=== PATIENT | male | born 1975 | race African-American/Black ===

== ENCOUNTER 2016-10-25 03:48 | Emergency (ER) | payer MEDICARE, OTHER ==
[~2016-10-25] VITALS: Ht 180.3 cm; Wt 77.0 kg
[~2016-10-25 03:48] MED LIST: DIPH1TAB25 PO; HYDR-762 PO; LAMI150T23 PO; TENO150T PO
[2016-10-25 03:51] VITALS: Ht 180.3 cm; Wt 77.0 kg
[2016-10-25] MEDS ORDERED: HYDROmorphONE 1 MG/ML SYG IV STA (06:26)
[2016-10-25 07:18] LABS: BASOPHILS % 0.3 % (0.0-2.0); EOSINOPHILS % 0.2 % (0.0-7.0); HEMATOCRIT 32.1 % (42.0-52.0); HEMOGLOBIN 10.6 g/dl (14.0-18.0); LYMPHOCYTES # 0.3 10^3/ul (0.8-2.9); LYMPHOCYTES % 8.5 % (15.0-51.0); MEAN CORPUSCULAR HEMOGLOBIN 31.2 pg (29.0-33.0); MEAN CORPUSCULAR HGB CONC 33.2 g/dl (32.0-37.0); MEAN PLATELET VOLUME 7.5 fl (7.4-10.4); MONOCYTE # 0.3 10^3/ul (0.3-0.9); MONOCYTES % 7.2 % (0.0-11.0); NEUTROPHIL # 3.3 10^3/ul (1.6-7.5); NEUTROPHILS % 83.8 % (39.0-77.0); PLATELET COUNT 97 10^3/UL (140-440); RED BLOOD COUNT 3.41 10^6/ul (4.70-6.10); RED CELL DISTRIBUTION WIDTH 15.6 % (11.5-14.5)
[2016-10-25 07:27] LABS: ALBUMIN 4.2 g/dl (3.3-4.9)
[2016-10-25 07:28] LABS: POTASSIUM 4.8 mmol/L (3.5-5.1)
[2016-10-25 07:30] LABS: ALBUMIN/GLOBULIN RATIO 0.95; CREATININE 9.97 mg/dl (0.61-1.24); TOTAL PROTEIN 8.6 g/dl (6.1-8.1)
[2016-10-25 07:31] LABS: CALCIUM 6.7 mg/dl (8.4-10.2)
[2016-10-25 07:37] LABS: CONDITION 1; LH ANALYZER COMMENTS 1
[2016-10-25 07:51] VITALS: BP 115/79; PULSE 77; RESP 20
[2016-10-25] MEDS ORDERED: BEN50 PO (07:52)
--- NOTE | 2016-10-25 07:58 | ERD ---
ER Documentation Chief Complaint Date/Time DATE: 10/25/16 0606 Chief Complaint lower abd pain x 1 hour, h/o same previously multiple times HPI 41-year-old male presents the emergency department complaining of abdominal pain. Review of patient's records indicate he has had serial evaluations for abdominal pain of similar complaint. Patient returns today complaining of abdominal pain that he states started for approximately 1 hour. He reports no fevers, chills, vomiting. He reports no diarrhea. He reports the pain is somewhere between a 9 out of 10 where a 10 out of 10. The pain does not radiate and is poorly localized but is mostly in the lower part of his abdomen. This pain is similar to what he has had in the past. Patient states that he feels this way after dialysis not infrequently. ROS All systems reviewed and are negative except as per history of present illness. Medications Home Meds Active Scripts Diphenhydramine Hcl* (Benadryl*) 50 Mg Cap, 50 MG PO Q6H Y for ITCHING/RASH, # 30 CAP Prov:ELE JONES 10/25/16 Lamivudine* (Epivir*) 150 Mg Tablet, 150 MG PO BID for 30 Days, TAB Prov:PRECIOUS LEROY MD 03/20/16 Tenofovir Disoproxil Fumarate (Viread) 150 Mg Tablet, 150 MG PO DAILY for 30 Days, TAB Prov:PRECIOUS LEROY MD 03/20/16 Hydrocodone Bit-Acetaminophen* ([place]*) 10-325 Mg Tablet, 1 TAB PO Q6 Y for PAIN , #6 TAB Prov:PRECIOUS LEROY MD 03/20/16 Reported Medications Diphenoxylate Hcl-Atropine* (Lomotil*) 1 Tab Tab, 1 TAB PO Q6H Y for DIARRHEA, TAB 09/14/15 Lamivudine* (Epivir*) 150 Mg Tablet, PO BID, TAB 09/14/15 Tenofovir Disoproxil Fumarate (Viread) 150 Mg Tablet, PO DAILY, TAB 09/14/15 Allergies Allergies: Coded Allergies: egg (Verified Allergy, Unknown, 03/20/16) PMhx/Soc History of Surgery: Yes (BIOPSY ON BACK AND KIDNEYS) Anesthesia Reaction: No Hx Neurological Disorder: No Hx Respiratory Disorders: No Hx Cardiac Disorders: No Hx Psychiatric Problems: Yes (DEPRESSION) Hx Miscellaneous Medical Probl: Yes (HIV positive,ESRD HD TThS) Hx Alcohol Use: No Hx Substance Use: No Hx Tobacco Use: No Smoking Status: Unknown if ever smoked FmHx Noncontributory for chief complaint Physical Exam Vitals Vital Signs Date Time Temp Pulse Resp B/P Pulse Ox O2 Delivery O2 Flow Rate FiO2 10/25/16 07:51 77 20 115/79 99 10/25/16 03:51 97.8 77 20 122/59 99 Physical Exam GENERAL: The patient is well developed and appropriate for usual state of health in no apparent distress HEENT: Pupils equal, round, and reactive to light. EOMI. There is no scleral icterus. NECK: C-spine is soft and supple, there is no meningismus. There is no cervical lymphadenopathy. LUNGS: Clear to auscultation bilaterally. There are no rales, wheezes or rhonchi. HEART: Regular rate and rhythm, no murmurs, clicks, rubs or gallops. ABDOMEN: Soft, non-tender, non-distended. There are bowel sounds in all four quadrants. No rebound or guarding. EXTREMITIES: There is no peripheral cyanosis or edema. No focal swelling or erythema. NEURO: The patient moves all four extremities with 5/5 strength. Cranial nerves II - XII are intact. Normal gait. Alert and oriented SKIN: There is no apparent rash or petechiae. HEME/LYMPHATIC: There is no evidence of excessive bruising or lymphedema. PSYCHIATRIC: The patient does not appear anxious or depressed. Result Diagram: 10/25/16 0640 10/25/16 0640 Results 24 hrs Laboratory Tests Test 10/25/16 06:40 Alanine Aminotransferase (ALT/SGPT) 38IU/L Albumin 4.2g/dl Albumin/Globulin Ratio 0.95 Alkaline Phosphatase 237IU/L Anion Gap 24 Aspartate Amino Transf (AST/SGOT) 32IU/L Basophils # 0.010^3/ul Basophils % 0.3% Blood Morphology Comment Blood Urea Nitrogen 41mg/dl Calcium Level 6.7mg/dl Carbon Dioxide Level 26mmol/L Chloride Level 97mmol/L Creatinine 9.97mg/dl Direct Bilirubin 0.00mg/dl Eosinophils # 0.010^3/ul Eosinophils % 0.2% Globulin 4.40g/dl Glucose Level 119mg/dl Hematocrit 32.1% Hemoglobin 10.6g/dl Indirect Bilirubin 0.0mg/dl Lipase 328U/L Lymphocytes # 0.310^3/ul Lymphocytes % 8.5% Mean Corpuscular Hemoglobin 31.2pg Mean Corpuscular Hemoglobin Concent 33.2g/dl Mean Corpuscular Volume 94.0fl Mean Platelet Volume 7.5fl Monocytes # 0.310^3/ul Monocytes % 7.2% Neutrophils # 3.310^3/ul Neutrophils % 83.8% Nucleated Red Blood Cells # 0.010^3/ul Nucleated Red Blood Cells % 0.0/100WBC Platelet Count 9710^3/UL Potassium Level 4.8mmol/L Red Blood Count 3.4110^6/ul Red Cell Distribution Width 15.6% Sodium Level 142mmol/L Total Bilirubin 0.0mg/dl Total Protein 8.6g/dl White Blood Count 4.010^3/ul Current Medications Medications (Trade) Dose Ordered Sig/Nima Route PRN Reason Start Time Stop Time Status Last Admin Dose Admin Hydromorphone HCl (Dilaudid) 1 mg ONCE STAT IV 10/25/16 06:26 10/25/16 06:28 DC 10/25/16 06:49 Procedures/MDM Patient was taken to a room, seen and evaluated. Comfort measures were initiated. Diagnostic tests were ordered and reviewed. 3 LEAD RHYTHM STRIP: Normal sinus rhythm without ectopy EK lead EKG interpreted by myself: Rate/rhythm: Normal sinus rhythm Ald[place]/intervals: Normal Ischemia: Nonspecific ST and T-wave changes with no ST elevation Impression: Nonspecific EKG REEVALUATION: Serial examinations of the abdomen remained benign [employer]ISION MAKIN-year-old male presents to the emergency department for chronic, intermittent abdominal pain of uncertain etiology. Differential diagnosis entertained was broad and potential high acuity, but ultimately the patient's lab tests and serial examination indicate the patient appears to be low risk. At this time, patient appears to be comfortable after supportive care in the emergency department. He appears to be appropriate for outpatient care. Departure Diagnosis: Primary Impression: Abdominal pain Condition: Stable Patient Instructions: Abdominal Pain Referrals: PING DURAN MD (PCP) Additional Instructions: Please see Dr. Duran tomorrow. Take a copy of your results with you. Return for any increased pain or concerns. ELE JONES Oct 25, 2016 07:57
== END 2016-10-25 08:06 | disposition home or self-care (01) ==
LOC: E/R 03:48
DX: R10.30 Lower abdominal pain, unspecified (principal); N18.6 End stage renal disease; Z99.2 Dependence on renal dialysis
CPT/HCPCS: 80053; 83690; 85025; J1170; 36415; 93005; 96374

== ENCOUNTER 2016-12-09 12:35 | Emergency (ER) | payer MEDICARE, OTHER ==
[~2016-12-09] VITALS: Ht 180.3 cm; Wt 76.8 kg
[~2016-12-09 12:35] MED LIST changes: +BEN50 PO
[2016-12-09] MEDS ORDERED: morphine 4 MG/ML VIAL IV STA ×2 (12:44→14:13)
[2016-12-09] MEDS ORDERED: FAMOTIDINE 20 MG INJ IV STA (12:44)
[2016-12-09] MEDS ORDERED: ONDANSETRON 4 MG INJ IV STA (12:44)
--- NOTE | 2016-12-09 13:06 | RADRPT ---
PROCEDURE: XR Chest. CLINICAL INDICATION: Shortness of breath. Chest pain. Abdominal pain. TECHNIQUE: Single frontal chest x-ray. COMPARISON: Chest x-ray dated 03/20/2016 FINDINGS: Large fibrothorax of the left chest is stable. Benign chronic changes are seen throughout the lungs , equally stable. No acute infiltrate or evidence for acute pneumonia is seen. Small left pleural effusion is present, likely chronic. The heart size is enlarged. Aortic atherosclerotic vascular ca lcifications are identified. There is no pneumothorax. The osseous structures are remarkable for si gnificant dextroscoliotic curvature of the upper thoracic spine, stable over time. IMPRESSION: 1. Large fibrothorax of the left hemithorax, chronic and stable. 2. Small left basilar pleural effusion, also stable and chronic. 3. Cardiomegaly with aortic atherosclerotic vascular calcifications. 4. No definite acute cardiopulmonary process. 5. Stable significant dextroscoliosis of the thoracic spine. RPTAT: PP .Stu Oviedo MD, MD Date Time Electronically viewed and signed by .Stu Oviedo MD, on 12/09/2016 13:05 .B/
[2016-12-09 13:10] VITALS: Ht 180.3 cm; Wt 76.8 kg
[2016-12-09] MEDS ORDERED: [UNRECOGNIZED DRUG - CODE] PO (13:22)
[2016-12-09] MEDS ORDERED: TENO300T2 PO (13:23)
[2016-12-09] MEDS ORDERED: SEVE800T7 PO (13:24)
[2016-12-09] MEDS ORDERED: EFV600C PO (13:25)
[2016-12-09 13:30] LABS: HEMATOCRIT 33.2 % (42.0-52.0); MEAN CORPUSCULAR HEMOGLOBIN 31.2 pg (29.0-33.0); MEAN CORPUSCULAR VOLUME 94.4 fl (82.0-101.0); MEAN PLATELET VOLUME 7.3 fl (7.4-10.4); PLATELET COUNT 83 10^3/UL (140-440); RED BLOOD COUNT 3.52 10^6/ul (4.70-6.10); UNCORRECTED WBC 2.3 10^3/ul (4.8-10.8)
[2016-12-09] MEDS ORDERED: DIPHENHYDRAMINE 25 MG CAP PO ONE (13:30)
[2016-12-09 13:39] LABS: CONDITION 1; LH ANALYZER COMMENTS 1
[2016-12-09 13:40] LABS: ALBUMIN 3.8 g/dl (3.3-4.9)
[2016-12-09 13:41] LABS: POTASSIUM 5.4 mmol/L (3.5-5.1)
[2016-12-09 13:43] LABS: ALBUMIN/GLOBULIN RATIO 0.9
[2016-12-09 13:46] LABS: CALCIUM 5.7 mg/dl (8.4-10.2)
[2016-12-09] MEDS ORDERED: CA GLUCONATE (GM) 10% 10ML INJ IV STA (14:06)
--- NOTE | 2016-12-09 14:12 | ERD ---
ER Documentation Chief Complaint Date/Time DATE: 12/09/16 TIME: 14:10 Chief Complaint HPI This is a 41-year-old male who presents to the emergency room from home for evaluation of generalized weakness, low blood sugar, and a mild shortness of breath. According to EMS this patient was found to have a blood sugar 46. The patient does state that he has not been eating for the past 2 days because he is been feeling sick and has mild abdominal pain. He states that abdominal pain is in the midportion of his abdomen and is only improved with Dilaudid. This patient is not a diabetic and is not on hypoglycemic medications. ROS All systems reviewed and are negative except as per history of present illness. Medications Home Meds Active Scripts Diphenhydramine Hcl* (Benadryl*) 50 Mg Cap, 50 MG PO Q6H Y for ITCHING/RASH, # 30 CAP Prov:ELE JONES 10/25/16 Reported Medications Efavirenz* (Sustiva*) 600 Mg Tab, 600 MG PO DAILY, TAB 12/09/16 Sevelamer Carbonate* (Renvela*) 800 Mg Tablet, 4 GM PO WITH MEALS, TAB 12/09/16 Tenofovir Disoproxil Fumarate (Viread) 300 Mg Tablet, 300 MG PO DAILY, TAB 12/09/16 Lamivudine* (Epivir*) 300 Mg Tablet, 300 MG PO DAILY, TAB 12/09/16 Diphenoxylate Hcl-Atropine* (Lomotil*) 1 Tab Tab, 1 TAB PO Q6H Y for DIARRHEA, TAB 09/14/15 Discontinued Reported Medications Lamivudine* (Epivir*) 150 Mg Tablet, PO BID, TAB 09/14/15 Tenofovir Disoproxil Fumarate (Viread) 150 Mg Tablet, PO DAILY, TAB 09/14/15 Discontinued Scripts Lamivudine* (Epivir*) 150 Mg Tablet, 150 MG PO BID for 30 Days, TAB Prov:PRECIOUS LEROY MD 03/20/16 Tenofovir Disoproxil Fumarate (Viread) 150 Mg Tablet, 150 MG PO DAILY for 30 Days, TAB Prov:PRECIOUS LEROY MD 03/20/16 Hydrocodone Bit-Acetaminophen* (Rena Lara*) 10-325 Mg Tablet, 1 TAB PO Q6 Y for PAIN , #6 TAB Prov:PRECIOUS LEROY MD 03/20/16 Allergies Allergies: Coded Allergies: egg (Verified Allergy, Unknown, 12/09/16) PMhx/Soc History of Surgery: Yes (BIOPSY ON BACK AND KIDNEYS) Anesthesia Reaction: No Hx Neurological Disorder: No Hx Respiratory Disorders: No Hx Cardiac Disorders: No Hx Psychiatric Problems: Yes (DEPRESSION) Hx Miscellaneous Medical Probl: Yes (HIV positive,ESRD HD TThS) Hx Alcohol Use: No Hx Substance Use: No Hx Tobacco Use: No Smoking Status: Former smoker Physical Exam Vitals Vital Signs Date Time Temp Pulse Resp B/P Pulse Ox O2 Delivery O2 Flow Rate FiO2 12/09/16 13:10 97.7 61 24 140/86 98 12/09/16 13:10 Nasal Cannula 2.0 12/09/16 13:10 97.7 61 24 140/86 98 Nasal Cannula 2.0 Physical Exam INITIAL VITAL SIGNS: Reviewed by me GENERAL: The patient is well developed and appropriate for usual state of health in no apparent distress HEENT: Pupils equal, round, and reactive to light. EOMI. There is no scleral icterus. NECK: C-spine is soft and supple, there is no meningismus. There is no cervical lymphadenopathy. LUNGS: Coarse breath sounds bilaterally, no wheezes HEART: Regular rate and rhythm, no murmurs, clicks, rubs or gallops. ABDOMEN: Soft, non-tender, non-distended. There are bowel sounds in all four quadrants. No rebound or guarding. EXTREMITIES: AV fistula in the right upper extremity, palpable thrill, there is no peripheral cyanosis or edema. No focal swelling or erythema. NEUROLOGICAL: The patient moves all four extremities with 5/5 strength. Cranial nerves II - XII are intact. Normal gait. Alert and oriented SKIN: There is no apparent rash or petechiae. HEME/LYMPHATIC: There is no evidence of excessive bruising or lymphedema. PSYCHIATRIC: The patient does not appear anxious or depressed. Result Diagram: 12/09/16 1310 12/09/16 1310 Results 24 hrs Laboratory Tests Test 12/09/16 13:02 12/09/16 13:10 Bedside Glucose 86mg/dL Alanine Aminotransferase (ALT/SGPT) 17IU/L Albumin 3.8g/dl Albumin/Globulin Ratio 0.90 Alkaline Phosphatase 209IU/L Anion Gap 26 Aspartate Amino Transf (AST/SGOT) 29IU/L Basophils # Pending Basophils % Pending Blood Morphology Comment Blood Urea Nitrogen 52mg/dl Calcium Level 5.7mg/dl Carbon Dioxide Level 25mmol/L Chloride Level 92mmol/L Creatinine Pending Direct Bilirubin 0.00mg/dl Eosinophils # Pending Eosinophils % Pending Globulin 4.20g/dl Glucose Level 85mg/dl Hematocrit 33.2% Hemoglobin 11.0g/dl Indirect Bilirubin 0.0mg/dl Lipase 210U/L Lymphocytes # Pending Lymphocytes % Pending Mean Corpuscular Hemoglobin 31.2pg Mean Corpuscular Hemoglobin Concent 33.0g/dl Mean Corpuscular Volume 94.4fl Mean Platelet Volume 7.3fl Monocytes # Pending Monocytes % Pending Neutrophils # Pending Neutrophils % Pending Nucleated Red Blood Cells # Pending Nucleated Red Blood Cells % Pending Platelet Count 8310^3/UL Potassium Level 5.4mmol/L Red Blood Count 3.5210^6/ul Red Cell Distribution Width 15.0% Sodium Level 138mmol/L Total Bilirubin 0.0mg/dl Total Protein 8.0g/dl White Blood Count 2.310^3/ul Current Medications Medications (Trade) Dose Ordered Sig/Nima Route PRN Reason Start Time Stop Time Status Last Admin Dose Admin Morphine Sulfate (morphine) 4 mg ONCE STAT IV 12/09/16 12:44 12/09/16 12:45 DC 12/09/16 13:06 Ondansetron HCl (Zofran Inj) 4 mg ONCE STAT IV 12/09/16 12:44 12/09/16 12:45 DC 12/09/16 13:06 Famotidine (Pepcid Iv) 20 mg ONCE STAT IV 12/09/16 12:44 12/09/16 12:45 DC 12/09/16 13:06 Diphenhydramine HCl (Benadryl) 25 mg ONCE ONCE PO 12/09/16 13:30 12/09/16 13:31 DC 12/09/16 13:27 Calcium Gluconate (Ca Gluc) 1 gm ONCE STAT IV 12/09/16 14:06 12/09/16 14:07 DC Procedures/MDM Chest X-ray 1V Interpreted by me: Soft Tissue: Fibrothorax with no effusion Bones: No acute abnormalities Mediastinum/Cardiac Silhouette/Lungs: [No acute abnormalities] This 41-year-old male presents to the emergency room for evaluation of abdominal pain, generalized weakness and low blood sugar. This patient had blood sugar checked after receiving dextrose and was 86. He is alert oriented to person place and time. The patient did have lab work drawn which shows hypocalcemia. He was given an amp of calcium gluconate here in the emergency room. He is scheduled for dialysis today. The patient was given morphine for pain control will be discharged home with a prescription for Rena Lara, and Colace for abdominal pain. He has no signs of pancreatitis at this time. Negative Burt sign, no rebound or tenderness Departure Diagnosis: Primary Impression: Pancytopenia Additional Impressions: Abdominal pain Chronic kidney disease Condition: Stable ANIKA CHARLES DO Dec 09, 2016 14:12
[2016-12-09] MEDS ORDERED: HYDR-906 PO (14:13)
[2016-12-09] MEDS ORDERED: DOCU-144 PO (14:13)
[2016-12-09 14:32] VITALS: BP 131/79; PULSE 61; RESP 20; TEMP 98
[2016-12-09 14:34] LABS: LYMPHOCYTES # 0.3 10^3/ul (0.8-2.9); MONOCYTE # 0.3 10^3/ul (0.3-0.9); NEUTROPHIL # 1.6 10^3/ul (1.6-7.5)
[2016-12-09 14:46] LABS: CREATININE 14.08 mg/dl (0.61-1.24)
[2016-12-11 16:47] LABS: WHITE BLOOD COUNT 2.3 10^3/ul (4.8-10.8)
== END 2016-12-09 15:13 | disposition home or self-care (01) ==
LOC: E/R 12:35
DX: D61.818 Other pancytopenia (principal); R10.9 Unspecified abdominal pain; N18.9 Chronic kidney disease, unspecified; Z87.891 Personal history of nicotine dependence
CPT/HCPCS: 36415; 71010; 80053; 82962; 83690; 85025; 96374; 96375; 96376; 99284; J0610; J2270; J2405

== ENCOUNTER 2017-07-18 11:43 | Inpatient (IN) | payer MEDICARE, OTHER ==
[~2017-07-18] VITALS: Ht 177.8 cm; Wt 69.5 kg
[2017-07-18] VITALS: BP 151/79; RESP 18
[~2017-07-18 11:43] MED LIST changes: +DOCU-144 PO; +EFV600C PO; -HYDR-762 PO; +HYDR-906 PO; -LAMI150T23 PO; +SEVE800T7 PO; -TENO150T PO; +TENO300T2 PO; +[UNRECOGNIZED DRUG - CODE] PO
[2017-07-18 12:16] VITALS: Ht 177.8 cm; Wt 69.5 kg
[2017-07-18 16:15] VITALS: TEMP 98.2
--- NOTE | 2017-07-18 16:23 | RADRPT ---
PROCEDURE: XR Chest. CLINICAL INDICATION: chest pain TECHNIQUE: Single frontal view of the chest was obtained COMPARISON: 12/09/16 FINDINGS: The heart and mediastinum are within normal limits. There are chronic interstitial changes in the left lung with chronic calcification. There is no focal infiltrate. There is no pleural effusion or pneumothorax. RPTAT: AA IMPRESSION: Chronic left fibrothorax. No focal infiltrate. .Abundio Herndon MD, MD Date Time Electronically viewed and signed by .Abundio Herndon MD, MD on 07/18/2017 16:23 .S/
[2017-07-18 16:37] LABS: BASOPHILS % 0.3 % (0.0-2.0); EOSINOPHILS % 0.7 % (0.0-7.0); HEMATOCRIT 32.3 % (42.0-52.0); HEMOGLOBIN 10.2 g/dl (14.0-18.0); LYMPHOCYTES # 0.6 10^3/ul (0.8-2.9); LYMPHOCYTES % 20.4 % (15.0-51.0); MEAN CORPUSCULAR HEMOGLOBIN 31.1 pg (29.0-33.0); MEAN CORPUSCULAR HGB CONC 31.6 g/dl (32.0-37.0); MEAN CORPUSCULAR VOLUME 98.5 fl (82.0-101.0); MEAN PLATELET VOLUME 10.4 fl (7.4-10.4); MONOCYTE # 0.2 10^3/ul (0.3-0.9); MONOCYTES % 6.9 % (0.0-11.0); NEUTROPHIL # 2.2 10^3/ul (1.6-7.5); NEUTROPHILS % 71.4 % (39.0-77.0); PLATELET COUNT 104 10^3/UL (140-415); RED BLOOD COUNT 3.28 10^6/ul (4.70-6.10); RED CELL DISTRIBUTION WIDTH 14.6 % (11.5-14.5)
[2017-07-18 16:51] LABS: POSITIVE DIFF NO
[2017-07-18 16:59] LABS: ANION GAP 17 (8-16); BLOOD UREA NITROGEN 81 mg/dl (7-20); CALCIUM 7.2 mg/dl (8.4-10.2); CARBON DIOXIDE 24 mmol/L (21-31); CHLORIDE 100 mmol/L (97-110); GLUCOSE 81 mg/dl (70-220); POTASSIUM 5.1 mmol/L (3.5-5.1); SODIUM 136 mmol/L (135-144)
[2017-07-18 17:06] LABS: CREATININE 15.33 mg/dl (0.61-1.24)
[2017-07-18 17:11] LABS: TROPONIN-I < 0.012 ng/ml (0.00-0.12)
[2017-07-18] MEDS ORDERED: LORA1TAB PO (17:13)
[2017-07-18] MEDS ORDERED: ACETAMINOPHEN 325 MG TAB PO PRN ×2 (17:30→19:00)
[2017-07-18] MEDS ORDERED: ONDANSETRON 4 MG INJ IV PRN ×2 (17:30→19:00)
--- NOTE | 2017-07-18 18:32 | ERA ---
ER Documentation Chief Complaint Date/Time DATE: 07/18/17 TIME: 18:30 Chief Complaint generalized bodyache, missed dialysis today, last dialysis sat. HPI Patient is a 42-year-old male with HIV and dialysis who presents with pain. He has whole body pain. He said he missed dialysis yesterday and today. His last dialysis was on Sunday. He has right-sided arm pain which started prior to dialysis which is why he did not go. He has had no treatment as of yet. Upon review of old medical records the patient has multiple visits to the ER with admissions. His primary doctor is Dr. Sharp. ROS All systems reviewed and are negative except as per history of present illness. Medications Home Meds Active Scripts Diphenhydramine Hcl* (Benadryl*) 50 Mg Cap, 50 MG PO Q6H Y for ITCHING/RASH, # 30 CAP Prov:ELE JONES 10/25/16 Reported Medications Lorazepam* (Lorazepam*) 1 Mg Tablet, 1 MG PO HS Y for ANXIETY, #30 TAB 07/18/17 Efavirenz* (Sustiva*) 600 Mg Tab, 600 MG PO DAILY, TAB 12/09/16 Sevelamer Carbonate* (Renvela*) 800 Mg Tablet, 4 GM PO WITH MEALS, TAB 12/09/16 Lamivudine* (Epivir*) 300 Mg Tablet, 300 MG PO DAILY, TAB 12/09/16 Discontinued Reported Medications Tenofovir Disoproxil Fumarate (Viread) 300 Mg Tablet, 300 MG PO DAILY, TAB 12/09/16 Diphenoxylate Hcl-Atropine* (Lomotil*) 1 Tab Tab, 1 TAB PO Q6H Y for DIARRHEA, TAB 09/14/15 Discontinued Scripts Docusate Sodium* (Colace*) 100 Mg Capsule, 100 MG PO TID, #30 CAP Prov:ANIKA CHARLES DO 12/09/16 Hydrocodone/Acetaminophen ([place] 5-325 Tablet) 1 Each Tablet, 1 TAB PO Q6H Y for PAIN, #15 TAB Prov:ANIKA CHARLES DO 12/09/16 Allergies Allergies: Coded Allergies: No Known Allergy (Unverified , 07/18/17) PMhx/Soc History of Surgery: Yes (BIOPSY ON BACK AND KIDNEYS, fistulas to right arm) Anesthesia Reaction: No Hx Neurological Disorder: No Hx Respiratory Disorders: No Hx Cardiac Disorders: No Hx Psychiatric Problems: Yes (DEPRESSION) Hx Miscellaneous Medical Probl: Yes (HIV positive,ESRD HD (TThS)) Hx Alcohol Use: No Hx Substance Use: No Hx Tobacco Use: Yes (cig occassionally) Smoking Status: Light tobacco smoker FmHx Family History: diabetes Physical Exam Vitals Vital Signs Date Time Temp Pulse Resp B/P Pulse Ox O2 Delivery O2 Flow Rate FiO2 07/18/17 16:15 98.2 59 18 147/75 100 Room Air 07/18/17 12:16 98.2 75 18 152/74 100 Physical Exam Const: No acute distress Head: Atraumatic Eyes: Normal Conjunctiva ENT: Normal External Ears, Nose and Mouth. Neck: Full range of motion..~ No meningismus. Resp: Clear to auscultation bilaterally Cardio: Regular rate and rhythm, no murmurs Abd: Soft, non tender, non distended. Normal bowel sounds Skin: No petechiae or rashes Back: No midline or flank tenderness Ext: No cyanosis, or edema Neur: Awake and alert Psych: Normal Mood and Affect Result Diagram: 07/18/17 1610 07/18/17 1610 Results 24 hrs Laboratory Tests Test 07/18/17 16:10 White Blood Count 3.010^3/ul Red Blood Count 3.2810^6/ul Hemoglobin 10.2g/dl Hematocrit 32.3% Mean Corpuscular Volume 98.5fl Mean Corpuscular Hemoglobin 31.1pg Mean Corpuscular Hemoglobin Concent 31.6g/dl Red Cell Distribution Width 14.6% Platelet Count 69196^3/UL Mean Platelet Volume 10.4fl Neutrophils % 71.4% Lymphocytes % 20.4% Monocytes % 6.9% Eosinophils % 0.7% Basophils % 0.3% Nucleated Red Blood Cells % 0.0/100WBC Neutrophils # 2.210^3/ul Lymphocytes # 0.610^3/ul Monocytes # 0.210^3/ul Eosinophils # 0.010^3/ul Basophils # 0.010^3/ul Nucleated Red Blood Cells # 0.010^3/ul Sodium Level 136mmol/L Potassium Level 5.1mmol/L Chloride Level 100mmol/L Carbon Dioxide Level 24mmol/L Anion Gap 17 Blood Urea Nitrogen 81mg/dl Creatinine 15.33mg/dl Glucose Level 81mg/dl Calcium Level 7.2mg/dl Troponin I < 0.012ng/ml Current Medications Medications (Trade) Dose Ordered Sig/Nima Route PRN Reason Start Time Stop Time Status Last Admin Dose Admin Ondansetron HCl (Zofran Inj) 4 mg ER BRIDGE PRN IV NAUSEA AND/OR VOMITING 07/18/17 17:30 07/19/17 17:29 Acetaminophen (Tylenol Tab) 650 mg ER BRIDGE PRN PO MILD PAIN/FEVER 07/18/17 17:30 07/19/17 17:29 Procedures/MDM EKG read by me: Rate/Rhythm: Sinus bradycardia Intervals: Normal Impression: Bradycardia without ischemia Chest x-ray shows no pneumonia or pneumothorax per radiology. Smoking Cessation Therapy: Pt. was lectured for greater than 3 minutes on the health risks of continued smoking and the benefits of cessation. Patient is a 42-year-old male with HIV and dialysis who presents with shortness of breath and whole body pain. The patient has missed his dialysis and has an elevated BUN and creatinine. He has chronic renal failure. His potassium is slightly elevated at 5.1. His EKG shows no signs of hyperkalemia at this time. The patient will be admitted to Dr. Sharp to a medical surgical bed. He will need dialysis while he is admitted. He was given Toradol for pain. He can return for any worsening symptoms. At this point I doubt acute coronary syndrome, pneumonia, pneumothorax, pulmonary embolism, or aortic dissection. Departure Diagnosis: Primary Impression: SOB (shortness of breath) Additional Impressions: Pain Anemia Qualified Code: D64.9 - Anemia, unspecified type Hyperkalemia Condition: PRECIOUS Aguirre MD Jul 18, 2017 18:32
[2017-07-18] MEDS ORDERED: DOCUSATE SODIUM 100 MG CAP PO PRN (19:00)
[2017-07-18] MEDS ORDERED: DIPHENHYDRAMINE 50 MG CAP PO PRN (19:00)
[2017-07-18] MEDS ORDERED: LORAZEPAM 1 MG TAB PO PRN (19:00)
[2017-07-18] MEDS ORDERED: ZOLPIDEM 5 MG TAB PO PRN (19:00)
[2017-07-18] MEDS ORDERED: NACL 0.9% 3 ML SYG IV SCH (19:00)
[2017-07-18] MEDS ORDERED: BISACODYL (EC) 5 MG TAB PO PRN (19:00)
[2017-07-18] MEDS: HYDROmorphONE 1 MG/ML SYG IV PRN (19:18)
[2017-07-18] MEDS ORDERED: LORAZEPAM 2 MG INJ IV ONE (21:00)
[2017-07-18 22:34] LABS: CREATINE KINASE 96 IU/L (23-200)
[2017-07-18 22:48] LABS: CK-MB 0.54 ng/ml (0.0-2.4); TROPONIN-I < 0.012 ng/ml (0.00-0.12)
--- NOTE | 2017-07-18 22:52 | QN ---
Documentation Comment [id number] PING DURAN MD Jul 18, 2017 22:52
[2017-07-19] VITALS (11 sets, daily range): BP systolic 120–152; BP diastolic 56–85; PULSE 51–67; RESP 18–20
[2017-07-19] MEDS: HYDROmorphONE 1 MG/ML SYG IV PRN ×5 (00:14→20:49)
[2017-07-19] MEDS: DIPHENHYDRAMINE 50 MG INJ IV PRN ×3 (04:18→20:49)
[2017-07-19] MEDS: PANTOPRAZOLE (EC) 40 MG TAB PO SCH (05:19)
[2017-07-19 05:52] LABS: TROPONIN-I 0.014 ng/ml (0.00-0.12)
[2017-07-19 06:05] LABS: CK-MB 0.7 ng/ml (0.0-2.4)
[2017-07-19] MEDS ORDERED: ENOXAPARIN 30 MG/0.3 ML SYG SC SCH (09:00)
[2017-07-19] MEDS ORDERED: LAMIVUDINE 300 MG PO SCH (09:00)
[2017-07-19] MEDS: EFAVIRENZ 600 MG TAB PO SCH (09:49)
[2017-07-19] MEDS: SEVELAMER CARBONATE 0.8 GM PKT PO SCH ×3 (09:50→17:28)
[2017-07-19] MEDS ORDERED: DIPHENHYDRAMINE 25 MG CAP PO ONE (11:00)
--- NOTE | 2017-07-19 11:12 | PN ---
Date/Time of Note Date/Time of Note DATE: 07/19/17 TIME: 11:11 Assessment/Plan VTE Prophylaxis VTE Prophylaxis Intervention: heparin Lines/Catheters IV Catheter Type (from Nrsg): Saline Lock Assessment/Plan Chief Complaint/Hosp Course 42 y/o with # SOB likely secondary to missing HD session # Left hand deformity with painful finer? Tendinitis # HTN # HIV # Fibrothorax Recs - HD today - Dr Leon to see - Pain management - GI/DVT prophylaxsis Problems: Subjective 24 Hr Interval Summary Free Text/Dictation Pain in left index, 2nd and 3rd finger Due for HD today Exam/Review of Systems Vital Signs Vitals Vital Signs Date Time Temp Pulse Resp B/P Pulse Ox O2 Delivery O2 Flow Rate FiO2 07/19/17 08:30 51 17 07/19/17 07:28 97.5 146/81 100 07/19/17 00:05 2.0 07/18/17 23:00 Room Air Intake and Output 07/18/17 07/18/17 07/19/17 15:00 23:00 07:00 Intake Total 200 ml Balance 200 ml Exam hEENT: Head is atraumatic, normocephalic. Pupils equal and reactive. NECK: Supple. No JVD. Patient has an engorged muscles in the whole upper chest and abdominal area with collaterals. LUNGS: decreasedn breath sounds bases CVS: S1, S2 normal. ABDOMEN: Soft. Bowel sounds positive. EXTREMITIES: No cyanosis, clubbing. No edema. 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 Results Result Diagram: 07/18/17 1610 07/18/17 1610 Results 24 hrs Laboratory Tests Test 07/18/17 16:10 07/18/17 22:08 07/19/17 04:44 White Blood Count 3.0 #L Red Blood Count 3.28 L Hemoglobin 10.2 L Hematocrit 32.3 L Mean Corpuscular Volume 98.5 Mean Corpuscular Hemoglobin 31.1 Mean Corpuscular Hemoglobin Concent 31.6 L Red Cell Distribution Width 14.6 H Platelet Count 104 L Mean Platelet Volume 10.4 # Neutrophils % 71.4 Lymphocytes % 20.4 Monocytes % 6.9 Eosinophils % 0.7 Basophils % 0.3 Nucleated Red Blood Cells % 0.0 Neutrophils # 2.2 Lymphocytes # 0.6 L Monocytes # 0.2 L Eosinophils # 0.0 Basophils # 0.0 Nucleated Red Blood Cells # 0.0 Sodium Level 136 Potassium Level 5.1 Chloride Level 100 Carbon Dioxide Level 24 Anion Gap 17 H Blood Urea Nitrogen 81 H Creatinine 15.33 H Glucose Level 81 Calcium Level 7.2 L Troponin I < 0.012 < 0.012 0.014 Creatine Kinase 96 93 Creatine Kinase Index 0.6 0.8 Creatinine Kinase MB (Mass) 0.54 0.70 Medications Medications Current Medications Efavirenz (Sustiva) 600 mg DAILY PO Last administered on 07/19/17 09:49; Admin Dose 600 MG; Start 07/19/17 at 09:00 Lamivudine (Epivir) 300 mg DAILY PO ; Start 07/19/17 at 09:00; Status Future Hold Lorazepam (Ativan) 1 mg HS PRN PO ANXIETY Last administered on 07/19/17 02:28 ; Admin Dose 1 MG; Start 07/18/17 at 19:00 Ondansetron HCl (Zofran Inj) 4 mg Q6H PRN IV NAUSEA AND/OR VOMITING; Start at 19:00 Acetaminophen (Tylenol Tab) 650 mg Q6H PRN PO PAIN LEVEL 1-3 OR FEVER; Start at 19:00 Hydromorphone HCl (Dilaudid) 0.5 mg Q4H PRN IV SEVERE PAIN LEVEL 7-10 Last administered on 07/19/17 09:52; Admin Dose 0.5 MG; Start 07/18/17 at 19:00 Docusate Sodium (Colace) 100 mg Q12H PRN PO CONSTIPATION; Start 07/18/17 at 19: 00 Bisacodyl (Dulcolax) 5 mg DAILY PRN PO CONSTIPATION; Start 07/18/17 at 19:00 Zolpidem Tartrate (Ambien) 5 mg QHS PRN PO SLEEP; Start 07/18/17 at 19:00 Pantoprazole (Protonix Tab) 40 mg DAILY@06 PO Last administered on 07/19/17 05 :19; Admin Dose 40 MG; Start 07/19/17 at 06:00 Enoxaparin Sodium (Lovenox) 30 mg DAILY SC ; Start 07/19/17 at 09:00 Diphenhydramine HCl (Benadryl) 25 mg TID PRN IV ITCHING Last administered on t 04:18; Admin Dose 25 MG; Start 07/19/17 at 01:30 JODI HICKMAN MD Jul 19, 2017 11:12
--- NOTE | 2017-07-19 13:54 | HP ---
DATE OF ADMISSION: 07/18/2017 HISTORY OF PRESENT ILLNESS: This patient, Edy Spear, is a 42-year-old male who has a history of ESRD, history of HIV, hypertension, history of hyperparathyroidism secondary, noncompliance with his medications, history of hypokalemia. Patient's other history includes history of pneumonia, history of dyslipidemia, history of sepsis. FAMILY HISTORY: Denies. SOCIAL HISTORY: Denies. MEDICATIONS: 1. hiv. 2. Sustiva. 3. aranesp_. 4. NovoLog. 5. Renvela. 6. Protonix. 7. Benadryl. 8. Ativan. 9. Zofran. 10. Tylenol. 11. Dilaudid. 12. Colace. 13. Bisacodyl. 14. Ambien REVIEW OF SYSTEMS: HEENT: Unremarkable. RESPIRATORY: Mild shortness of breath. CVS: reg. GASTROINTESTINAL: neg. EXTREMITIES: Swelling and collaterals in the upper chest and upper extremities noted. PHYSICAL EXAMINATION: GENERAL: Patient is awake, alert. VITAL SIGNS: Pulse 59, blood pressure 142/71. HEENT: Head is atraumatic, normocephalic. Pupils equal and reactive. NECK: Supple. No JVD. Patient has an engorged muscles in the whole upper chest and abdominal area with collaterals. LUNGS: Clear. CVS: S1, S2 normal. ABDOMEN: Soft. Bowel sounds positive. EXTREMITIES: No cyanosis, clubbing. No edema. 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 DATA: Potassium 5.1, sodium 136. Patient had a chest x-ray done, shows chronic left fibrothorax. IMPRESSION: 1. Hypertension. 2. End-stage renal disease. 3. Human immunodeficiency virus. 4. Hemodialysis. 5. Hypokalemia. 6. Fibrothorax. 7. 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 PLAN: Continue home medication, hemodialysis, pain meds. Dictated By: Ric Sharp MD /belle/shana /Document#: [id number] CANDICE
[2017-07-19] MEDS ORDERED: BETAMET NA PHOS/AC(6 MG/ML) 5ML INJ INJ ONE (18:00)
[2017-07-19] MEDS ORDERED: BUPIVACAINE 0.5%/EPI (SDV) 30 ML INJ INJ ONE (18:00)
[2017-07-19] MEDS: LAMIVUDINE 10 MG/ML PO SCH (20:48)
[2017-07-19] MEDS: HEPARIN 5,000 UNIT/0.5 ML VIAL SC SCH (21:01)
--- NOTE | 2017-07-19 23:34 | CONS ---
DATE OF ADMISSION: 07/18/2017 DATE OF CONSULTATION: 07/19/2017 HISTORY OF PRESENT ILLNESS: The patient is a 42-year-old, right- handed male, who was admitted on June when he came to the emergency room complaining of shortness of breath along with the diffuse and generalized ache. He is known to have multiple medical problems including history of end-stage renal disease on dialysis, history of HIV, hypertension, history of hyperparathyroidism secondary to noncompliance of his medications and history of hypokalemia. There also was a history of pneumonia and history of dyslipidemia. Orthopedic Surgery was consulted because of the gradually worsening inability to extend his right middle finger and right ring finger, which a developed within 1 to 2 years. PHYSICAL EXAMINATION: EXTREMITIES: My examination revealed a 42-year-old, right-handed male, with the impending flexion contracture involving the right middle finger and right ring finger. There was a tenderness over the volar aspect of the MP joint of the right ring finger and right middle finger. Right middle finger could be extended with some pain and discomfort, however, right ring finger cannot be extended fully because of the severe pain. He would not extend right hand fully. X-rays were not available for my review. There was no obvious triggering at this time. IMPRESSION: Stenosing tenosynovitis involving the flexor tendons, right ring finger, and right middle finger with impending flexion contracture. RECOMMENDATIONS: Recommendations for treatment will be. 1. Trial of steroid injection into the flexor tendon ismael at the level of metacarpophalangeal joint. 2. If steroid injection to the flexor tendon ismael is not effective, then this patient will need surgical release of the flexor tendon ismael at the level of the MP joint to the right ring finger and right middle finger. Dictated By: In Ameena Leon MD /belle/arnulfo /Document#: [id number]
[2017-07-20] MEDS: HYDROmorphONE 1 MG/ML SYG IV PRN ×5 (00:26→22:30)
[2017-07-20 02:52] VITALS: BP 131/62; RESP 18
[2017-07-20] MEDS: PANTOPRAZOLE (EC) 40 MG TAB PO SCH (06:25)
[2017-07-20] MEDS: DIPHENHYDRAMINE 50 MG INJ IV PRN ×4 (06:25→22:29)
[2017-07-20 07:46] VITALS: BP 140/74; RESP 18
[2017-07-20] MEDS: EFAVIRENZ 600 MG TAB PO SCH (09:00)
[2017-07-20] MEDS: LAMIVUDINE 10 MG/ML PO SCH (09:01)
[2017-07-20] MEDS: SEVELAMER CARBONATE 0.8 GM PKT PO SCH ×4 (09:01→18:31)
[2017-07-20] MEDS: HEPARIN 5,000 UNIT/0.5 ML VIAL SC SCH ×2 (09:39→21:14)
--- NOTE | 2017-07-20 12:20 | PN ---
Date/Time of Note Date/Time of Note DATE: 07/20/17 TIME: 12:19 Assessment/Plan VTE Prophylaxis VTE Prophylaxis Intervention: ambulation Lines/Catheters IV Catheter Type (from Nrsg): Saline Lock Assessment/Plan Chief Complaint/Hosp Course 1. SOB, resolved. 2. Left hand deformity with painful finer? Tendinitis 3. HTN 4. HIV 5. Fibrothorax 6. Severe allergy 7. Anxiety Problems: Assessment/Plan 1. Decreasing the interval for Benadryl PRN for severe itching. 2.Trial of steroid injection into the flexor tendon ismael at the level of metacarpophalangeal joint by dr BETANCOURT. 3. Continue HD Subjective 24 Hr Interval Summary Musculoskeletal: restricted range of motion (left hand) Skin: other (right Upper AV fistula) Psychological: anxiety Exam/Review of Systems Vital Signs Vitals Vital Signs Date Time Temp Pulse Resp B/P Pulse Ox O2 Delivery O2 Flow Rate FiO2 07/20/17 09:47 2.0 07/20/17 07:46 98.4 59 18 140/74 100 07/19/17 20:20 Nasal Cannula Intake and Output 07/19/17 07/19/17 07/20/17 15:00 23:00 07:00 Intake Total 500 ml 360 ml 680 ml Output Total 3500 ml Balance -3000 ml 360 ml 680 ml Exam Head: atraumatic, normocephalic Respiratory: clear to auscultation Musculoskeletal: muscle weakness (left hand) Results Result Diagram: 07/18/17 1610 07/18/17 1610 Medications Medications Current Medications Efavirenz (Sustiva) 600 mg DAILY PO Last administered on 07/20/17 09:00; Admin Dose 600 MG; Start 07/19/17 at 09:00 Lorazepam (Ativan) 1 mg HS PRN PO ANXIETY Last administered on 07/19/17 02:28 ; Admin Dose 1 MG; Start 07/18/17 at 19:00 Ondansetron HCl (Zofran Inj) 4 mg Q6H PRN IV NAUSEA AND/OR VOMITING; Start at 19:00 Acetaminophen (Tylenol Tab) 650 mg Q6H PRN PO PAIN LEVEL 1-3 OR FEVER; Start at 19:00 Hydromorphone HCl (Dilaudid) 0.5 mg Q4H PRN IV SEVERE PAIN LEVEL 7-10 Last administered on 07/20/17 10:22; Admin Dose 0.5 MG; Start 07/18/17 at 19:00 Docusate Sodium (Colace) 100 mg Q12H PRN PO CONSTIPATION; Start 07/18/17 at 19: 00 Bisacodyl (Dulcolax) 5 mg DAILY PRN PO CONSTIPATION; Start 07/18/17 at 19:00 Zolpidem Tartrate (Ambien) 5 mg QHS PRN PO SLEEP; Start 07/18/17 at 19:00 Pantoprazole (Protonix Tab) 40 mg DAILY@06 PO Last administered on 07/20/17 06 :25; Admin Dose 40 MG; Start 07/19/17 at 06:00 Diphenhydramine HCl (Benadryl) 25 mg TID PRN IV ITCHING Last administered on 06:25; Admin Dose 25 MG; Start 07/19/17 at 01:30 Heparin Sodium (Porcine) (Heparin (5000 Units/0.5 ml)) 5,000 unit Q12 SC Last administered on 07/20/17 09:39; Admin Dose 5,000 UNIT; Start 07/19/17 at 21:00 Non-Formulary Medication 2.5 ml DAILY PO Last administered on 07/20/17 09:01; Admin Dose 2.5 ML; Start 07/19/17 at 17:00 CINDY GRACIA Jul 20, 2017 12:20
[2017-07-20] MEDS ORDERED: LORAZEPAM 1 MG TAB PO PRN (12:36)
[2017-07-20 13:29] VITALS: BP 139/66; RESP 20
[2017-07-20 20:03] VITALS: BP 138/74; RESP 18
[2017-07-21] VITALS (11 sets, daily range): BP systolic 90–158; BP diastolic 56–86; PULSE 65–87; RESP 18–20
[2017-07-21] MEDS: HYDROmorphONE 1 MG/ML SYG IV PRN ×4 (02:26→15:10)
[2017-07-21] MEDS: DIPHENHYDRAMINE 50 MG INJ IV PRN ×3 (02:29→16:18)
[2017-07-21 06:02] LABS: ABNORMAL IP MESSAGE 1; BASOPHILS % 0.6 % (0.0-2.0); EOSINOPHILS % 1.3 % (0.0-7.0); HEMATOCRIT 30.2 % (42.0-52.0); HEMOGLOBIN 9.6 g/dl (14.0-18.0); LYMPHOCYTES # 0.6 10^3/ul (0.8-2.9); LYMPHOCYTES % 17.9 % (15.0-51.0); MEAN CORPUSCULAR HGB CONC 31.8 g/dl (32.0-37.0); MEAN CORPUSCULAR VOLUME 97.4 fl (82.0-101.0); MEAN PLATELET VOLUME 9.5 fl (7.4-10.4); MONOCYTE # 0.3 10^3/ul (0.3-0.9); MONOCYTES % 9.9 % (0.0-11.0); NEUTROPHIL # 2.2 10^3/ul (1.6-7.5); NEUTROPHILS % 70.3 % (39.0-77.0); PLATELET COUNT 91 10^3/UL (140-415); POSITIVE DIFF @See below; RED CELL DISTRIBUTION WIDTH 14.1 % (11.5-14.5); WHITE BLOOD COUNT 3.1 10^3/ul (4.8-10.8)
[2017-07-21 06:23] LABS: CALCIUM 6.9 mg/dl (8.4-10.2); POTASSIUM 5.5 mmol/L (3.5-5.1)
[2017-07-21] MEDS: PANTOPRAZOLE (EC) 40 MG TAB PO SCH (06:25)
[2017-07-21 06:30] LABS: CREATININE 14.78 mg/dl (0.61-1.24)
[2017-07-21] MEDS: SEVELAMER CARBONATE 0.8 GM PKT PO SCH ×3 (08:35→18:00)
[2017-07-21] MEDS: EFAVIRENZ 600 MG TAB PO SCH (08:35)
[2017-07-21] MEDS: HEPARIN 5,000 UNIT/0.5 ML VIAL SC SCH (08:54)
[2017-07-21] MEDS: LAMIVUDINE 10 MG/ML PO SCH (09:28)
--- NOTE | 2017-07-21 15:16 | PDOCDIS ---
Discharge Instructions DIAGNOSIS Discharge Diagnosis SOB, Missed HD, ESRD CONDITION Patient Condition: Good HOME CARE INSTRUCTIONS: Diet Instructions: Low Fat /CholesterolSpecial Diet: RENAL ACTIVITY: Activity Restrictions: Slowly Increase Activity FOLLOW UP/APPOINTMENTS Follow-up Plan PCP 1 week SCHOOL/WORK RELEASE May return to School/Work with: With Restrictions CINDY GRACIA Jul 21, 2017 15:16
[2017-07-21] MEDS ORDERED: CALC200T26 PO (15:18)
--- NOTE | 2017-07-21 15:19 | PN ---
Date/Time of Note Date/Time of Note DATE: 07/21/17 TIME: 15:18 Assessment/Plan VTE Prophylaxis VTE Prophylaxis Intervention: ambulation Lines/Catheters IV Catheter Type (from Nrs): Saline Lock Assessment/Plan Chief Complaint/Hosp Course 1. SOB, resolved. 2. Left hand deformity with painful finer? Tendinitis. Dr Leon did not inject steroids by some reasons 3. HTN 4. HIV 5. Fibrothorax 6. Severe allergy 7. Anxiety, resolved 8. hypocalcemia Problems: Assessment/Plan 1. Discharge with HD 2. Continue CA carbonate4 1000 mg BID Subjective 24 Hr Interval Summary Constitutional: improved, no complaints Exam/Review of Systems Vital Signs Vitals Vital Signs Date Time Temp Pulse Resp B/P Pulse Ox O2 Delivery O2 Flow Rate FiO2 07/21/17 13:19 97.6 57 20 130/68 100 07/21/17 01:42 2.0 07/19/17 20:20 Nasal Cannula Intake and Output 07/20/17 07/20/17 07/21/17 15:00 23:00 07:00 Intake Total 360 ml 600 ml Balance 360 ml 600 ml Exam Psych: nl mood/affect, no complaints ENMT: nl external ears & nose Neck: supple Respiratory: clear to auscultation Cardiovascular: regular rate and rhythm Genitourinary - Male: nl scrotum Extremities: normal pulses Results Result Diagram: 07/21/17 0536 07/21/17 0536 Results 24 hrs Laboratory Tests Test 07/21/17 05:36 White Blood Count 3.1 L Red Blood Count 3.10 L Hemoglobin 9.6 L Hematocrit 30.2 L Mean Corpuscular Volume 97.4 Mean Corpuscular Hemoglobin 31.0 Mean Corpuscular Hemoglobin Concent 31.8 L Red Cell Distribution Width 14.1 Platelet Count 91 L Mean Platelet Volume 9.5 Neutrophils % 70.3 Lymphocytes % 17.9 Monocytes % 9.9 Eosinophils % 1.3 Basophils % 0.6 Nucleated Red Blood Cells % 0.0 Neutrophils # 2.2 Lymphocytes # 0.6 L Monocytes # 0.3 Eosinophils # 0.0 Basophils # 0.0 Nucleated Red Blood Cells # 0.0 Sodium Level 136 Potassium Level 5.5 H Chloride Level 99 Carbon Dioxide Level 26 Anion Gap 17 H Blood Urea Nitrogen 68 H Creatinine 14.78 H Glucose Level 76 Calcium Level 6.9 L Medications Medications Current Medications Efavirenz (Sustiva) 600 mg DAILY PO Last administered on 07/21/17 08:35; Admin Dose 600 MG; Start 07/19/17 at 09:00 Ondansetron HCl (Zofran Inj) 4 mg Q6H PRN IV NAUSEA AND/OR VOMITING; Start at 19:00 Acetaminophen (Tylenol Tab) 650 mg Q6H PRN PO PAIN LEVEL 1-3 OR FEVER; Start at 19:00 Hydromorphone HCl (Dilaudid) 0.5 mg Q4H PRN IV SEVERE PAIN LEVEL 7-10 Last administered on 07/21/17 15:10; Admin Dose 0.5 MG; Start 07/18/17 at 19:00 Docusate Sodium (Colace) 100 mg Q12H PRN PO CONSTIPATION; Start 07/18/17 at 19: 00 Bisacodyl (Dulcolax) 5 mg DAILY PRN PO CONSTIPATION; Start 07/18/17 at 19:00 Zolpidem Tartrate (Ambien) 5 mg QHS PRN PO SLEEP; Start 07/18/17 at 19:00 Pantoprazole (Protonix Tab) 40 mg DAILY@06 PO Last administered on 07/21/17 06 :25; Admin Dose 40 MG; Start 07/19/17 at 06:00 Heparin Sodium (Porcine) (Heparin (5000 Units/0.5 ml)) 5,000 unit Q12 SC Last administered on 07/21/17 08:54; Admin Dose 5,000 UNIT; Start 07/19/17 at 21:00 Non-Formulary Medication 2.5 ml DAILY PO Last administered on 07/21/17 09:28; Admin Dose 2.5 ML; Start 07/19/17 at 17:00 Diphenhydramine HCl (Benadryl) 25 mg Q4H PRN IV ITCHING Last administered on 08:36; Admin Dose 25 MG; Start 07/20/17 at 13:00 Lorazepam (Ativan) 1 mg Q6H PRN PO ANXIETY Last administered on 07/20/17 12:39 ; Admin Dose 1 MG; Start 07/20/17 at 12:36 Calcium Carbonate (Tums) 1,000 mg BID PO ; Start 9/30/17 at 21:00 CINDY GRACIA Jul 21, 2017 15:19
[2017-07-21] MEDS ORDERED: CALCIUM CARBONATE 500 MG CHEW TAB PO SCH (21:00)
== END 2017-07-21 19:45 | disposition home or self-care (01) | DRG 204 ==
LOC: E/R 11:43 → MS2 17:08 → OBSVTOIN 07-20 12:52
PROVIDERS: ADMIT Internal Medicine; ATTEND Internal Medicine
PROC: 5A1D60Z (ICD-10-PCS; principal; 2017-07-19)
DX: R06.02 Shortness of breath (principal); N18.6 End stage renal disease; I12.0 Hypertensive chronic kidney disease with stage 5 chronic kidney disease or end stage renal disease; J94.1 Fibrothorax; E21.3 Hyperparathyroidism, unspecified; Z91.14 Patient's other noncompliance with medication regimen; E87.6 Hypokalemia; E78.5 Hyperlipidemia, unspecified; M24.542 Contracture, left hand; F41.9 Anxiety disorder, unspecified; Z99.2 Dependence on renal dialysis; E83.51 Hypocalcemia; T78.40XA Allergy, unspecified, initial encounter; X58.XXXA Exposure to other specified factors, initial encounter
CPT/HCPCS: 71010; 80048; 82550; 82553; 84484; 85025; 90935; 93005; 96374; 96375; 97163; G0378; J0702; J1170; J1200; J1644; J2060

== ENCOUNTER 2017-08-15 07:22 | Emergency (ER) | payer MEDICARE, OTHER ==
[~2017-08-15] VITALS: Ht 167.6 cm; Wt 70.0 kg
[~2017-08-15 07:22] MED LIST changes: +CALC200T26 PO; -DIPH1TAB25 PO; -DOCU-144 PO; -HYDR-906 PO; +LORA1TAB PO; -TENO300T2 PO
[2017-08-15 07:34] VITALS: Ht 167.6 cm; Wt 70.0 kg
[2017-08-15 07:56] LABS: ABNORMAL IP MESSAGE 1; BASOPHILS % 0.3 % (0.0-2.0); HEMOGLOBIN 9.4 g/dl (14.0-18.0); LYMPHOCYTES # 0.3 10^3/ul (0.8-2.9); LYMPHOCYTES % 7.3 % (15.0-51.0); MEAN CORPUSCULAR HEMOGLOBIN 30.7 pg (29.0-33.0); MEAN CORPUSCULAR HGB CONC 31.3 g/dl (32.0-37.0); MEAN PLATELET VOLUME 10.1 fl (7.4-10.4); MONOCYTE # 0.3 10^3/ul (0.3-0.9); MONOCYTES % 7.6 % (0.0-11.0); NEUTROPHIL # 3.2 10^3/ul (1.6-7.5); NEUTROPHILS % 83.5 % (39.0-77.0); PLATELET COUNT 94 10^3/UL (140-415); POSITIVE DIFF @See below; RED BLOOD COUNT 3.06 10^6/ul (4.70-6.10); RED CELL DISTRIBUTION WIDTH 13.8 % (11.5-14.5); WHITE BLOOD COUNT 3.8 10^3/ul (4.8-10.8)
[2017-08-15 08:30] LABS: ALBUMIN/GLOBULIN RATIO 0.88; CALCIUM 7.8 mg/dl (8.4-10.2); POTASSIUM 5.8 mmol/L (3.5-5.1); TOTAL PROTEIN 8.5 g/dl (6.1-8.1)
[2017-08-15 08:38] LABS: CREATININE 14.74 mg/dl (0.61-1.24)
[2017-08-15] MEDS ORDERED: morphine 4 MG/ML VIAL IV STA (09:16)
--- NOTE | 2017-08-15 09:55 | ERD ---
ER Documentation Chief Complaint Chief Complaint BIB [facility] FOR EVAL OF GENERALIZED WEAKNESS AND BODY ACHES. MISSED HD YESTERDAY HPI This is a 42-year-old male who presents to the emergency room for evaluation of generalized weakness and body aches. The patient does have a history of end- stage renal disease, hypertension and states that he did miss dialysis yesterday because he was "into much pain all over". The patient states "I need Dilaudid for my pain". The patient denies any chest pain or shortness of breath at this time. He came to the ER for evaluation of his total body pain which he describes as achy sensation. ROS All systems reviewed and are negative except as per history of present illness. Medications Home Meds Active Scripts Calcium Carbonate (CALCIUM CARBONATE) 200 Mg Tab.chew, 1000 MG PO BID for 30 Days, TAB.CHEW Prov:CINDY GRACIA 07/21/17 Diphenhydramine Hcl* (Benadryl*) 50 Mg Cap, 50 MG PO Q6H Y for ITCHING/RASH, # 30 CAP Prov:ELE JONES 10/25/16 Reported Medications Lorazepam* (Lorazepam*) 1 Mg Tablet, 1 MG PO HS Y for ANXIETY, #30 TAB 07/18/17 Efavirenz* (Sustiva*) 600 Mg Tab, 600 MG PO DAILY, TAB 12/09/16 Sevelamer Carbonate* (Renvela*) 800 Mg Tablet, 4 GM PO WITH MEALS, TAB 12/09/16 Lamivudine* (Epivir*) 300 Mg Tablet, 300 MG PO DAILY, TAB 12/09/16 Allergies Allergies: Coded Allergies: egg (Verified Allergy, Unknown, 08/15/17) PMhx/Soc History of Surgery: Yes (BIOPSY OF BACK AND KIDNEYS) Anesthesia Reaction: No Hx Neurological Disorder: No Hx Respiratory Disorders: No Hx Cardiac Disorders: No Hx Psychiatric Problems: Yes (DEPRESSION) Hx Miscellaneous Medical Probl: Yes (HIV) Hx Alcohol Use: No Hx Substance Use: No Hx Tobacco Use: Yes (cig occassionally) Smoking Status: Current some day smoker Physical Exam Vitals Vital Signs Date Time Temp Pulse Resp B/P Pulse Ox O2 Delivery O2 Flow Rate FiO2 08/15/17 07:47 Nasal Cannula 2.0 08/15/17 07:34 98.4 76 20 135/70 100 Physical Exam INITIAL VITAL SIGNS: Reviewed by me GENERAL: The patient is well developed and appropriate for usual state of health in no apparent distress HEENT: Rhinorrhea, pupils equal, round, and reactive to light. EOMI. There is no scleral icterus. NECK: C-spine is soft and supple, there is no meningismus. There is no cervical lymphadenopathy. LUNGS: Clear to auscultation bilaterally. There are no rales, wheezes or rhonchi. HEART: Regular rate and rhythm, no murmurs, clicks, rubs or gallops. ABDOMEN: Soft, non-tender, non-distended. There are bowel sounds in all four quadrants. No rebound or guarding. EXTREMITIES: There is no peripheral cyanosis or edema. No focal swelling or erythema. NEUROLOGICAL: The patient moves all four extremities with 5/5 strength. Cranial nerves II - XII are intact. Normal gait. Alert and oriented SKIN: Dialysis catheter in place, there is no apparent rash or petechiae. HEME/LYMPHATIC: There is no evidence of excessive bruising or lymphedema. PSYCHIATRIC: The patient does not appear anxious or depressed. Result Diagram: 08/15/17 0748 08/15/17 0748 Results 24 hrs Laboratory Tests Test 08/15/17 07:48 White Blood Count 3.810^3/ul Red Blood Count 3.0610^6/ul Hemoglobin 9.4g/dl Hematocrit 30.0% Mean Corpuscular Volume 98.0fl Mean Corpuscular Hemoglobin 30.7pg Mean Corpuscular Hemoglobin Concent 31.3g/dl Red Cell Distribution Width 13.8% Platelet Count 9410^3/UL Mean Platelet Volume 10.1fl Neutrophils % 83.5% Lymphocytes % 7.3% Monocytes % 7.6% Eosinophils % 1.0% Basophils % 0.3% Nucleated Red Blood Cells % 0.0/100WBC Neutrophils # 3.210^3/ul Lymphocytes # 0.310^3/ul Monocytes # 0.310^3/ul Eosinophils # 0.010^3/ul Basophils # 0.010^3/ul Nucleated Red Blood Cells # 0.010^3/ul Sodium Level 139mmol/L Potassium Level 5.8mmol/L Chloride Level 95mmol/L Carbon Dioxide Level 29mmol/L Anion Gap 21 Blood Urea Nitrogen 61mg/dl Creatinine 14.74mg/dl Glucose Level 113mg/dl Calcium Level 7.8mg/dl Total Bilirubin 0.0mg/dl Direct Bilirubin 0.00mg/dl Indirect Bilirubin 0.0mg/dl Aspartate Amino Transf (AST/SGOT) 17IU/L Alanine Aminotransferase (ALT/SGPT) 30IU/L Alkaline Phosphatase 196IU/L Total Protein 8.5g/dl Albumin 4.0g/dl Globulin 4.50g/dl Albumin/Globulin Ratio 0.88 Lipase 389U/L Current Medications Medications (Trade) Dose Ordered Sig/Nima Route PRN Reason Start Time Stop Time Status Last Admin Dose Admin Calcium Gluconate/ Sodium Chloride (Ca Gluc/NS) 110 ml @ 110 mls/hr ONCE IVPB 08/15/17 11:00 08/15/17 11:59 08/15/17 09:37 Morphine Sulfate (morphine) 4 mg ONCE STAT IV 08/15/17 09:16 08/15/17 09:17 DC 08/15/17 09:37 Procedures/MDM EKG: Rate/Rhythm: [Normal Sinus Rhythm] QRS, ST, T-waves: [No changes consistent w/ acute ischemia] Impression: [No evidence of ischemia or arrhythmia] Chest X-ray 1V Interpreted by me: Soft Tissue: No acute abnormalities Bones: No acute abnormalities Mediastinum/Cardiac Silhouette/Lungs: Chronic fibrothorax This 42-year-old male presents to the ER for evaluation of generalized body aches. The patient was hemodynamically stable on my evaluation however he did have some rhinorrhea. He was afebrile and not hypoxic. Chest x-ray does not reveal any pulmonary edema or gross fluid overload. His lab work does demonstrate a potassium of 5.8. The patient was given 1 g of calcium gluconate here in the emergency room. I have contacted his electrical tester and has spoken to the covering physician, Dr. sharp who agrees this patient can be discharged at this time with outpatient follow-up and dialysis tomorrow morning for which is scheduled. The patient was asking for Dilaudid however I stated it was not indicated as this patient was able to receive morphine. The patient was given 4 mg of morphine will be discharged at this time. I also swabbed this patient for influenza and is negative and I have talked to him by his lab findings. He is comfortable with discharge at this time and instructed to return at any point for reevaluation. Departure Diagnosis: Primary Impression: Hyperkalemia Additional Impressions: Myalgia End stage renal disease Condition: Stable ANIKA CHARLES DO Aug 15, 2017 09:55
[2017-08-15 09:56] VITALS: TEMP 98.9
[2017-08-15] MEDS ORDERED: DIPHENHYDRAMINE 50 MG INJ IV ONE (11:00)
[2017-08-15] MEDS ORDERED: CALCIUM GLUCONATE 10% 1 GM in SOD CHLORIDE 0.9% 100 ML IVPB SCH (11:00)
[2017-08-15 11:16] VITALS: BP 133/78; PULSE 70; RESP 17
--- NOTE | 2017-08-15 15:05 | RADRPT ---
PROCEDURE: XR Chest. CLINICAL INDICATION: Shortness of breath. TECHNIQUE: Single frontal view. COMPARISON: 07/18/2017. FINDINGS: There is dense pleural calcification on the left side with volume loss consistent with probable fibr othorax, unchanged. The lungs are otherwise clear. The heart is mildly enlarged. There is calcification in the aorta consistent with atherosclerosis. There are small bilateral pleural effusions. There is no pneumothorax. IMPRESSION: 1. Dense pleural calcification on the left with volume loss consistent with fibrothorax, unchanged. 2. Small bilateral pleural effusions. 3. Mild cardiomegaly and atherosclerosis. RPTAT: QQ .Ranjit Iverson MD, MD Date Time Electronically viewed and signed by .Ranjit Iverson MD, on 08/15/2017 15:05 .R/
== END 2017-08-15 11:35 | disposition home or self-care (01) ==
LOC: E/R 07:22
DX: E87.5 Hyperkalemia (principal); R40.2252 Coma scale, best verbal response, oriented, at arrival to emergency department; M79.1 Myalgia; N18.6 End stage renal disease; F17.210 Nicotine dependence, cigarettes, uncomplicated; R40.2142 Coma scale, eyes open, spontaneous, at arrival to emergency department; R40.2362 Coma scale, best motor response, obeys commands, at arrival to emergency department
CPT/HCPCS: 36415; 71010; 80053; 83690; 85025; 87400; 93005; 96374; 96375; 99285; J0610; J1200; J2270

== ENCOUNTER 2019-06-25 21:11 | Emergency (ER) | payer MEDICARE, OTHER ==
[~2019-06-25] VITALS: Ht 162.6 cm; Wt 75.6 kg
[~2019-06-25 21:11] MED LIST changes: +ALPR0.254 PO; +CLON-379 PO; -EFV600C PO; +HYDR-4011 PO; +ONDA4TAB14 PO; +[UNRECOGNIZED DRUG - CODE] PO
[2019-06-25 21:16] VITALS: Ht 162.6 cm; Wt 75.6 kg
[2019-06-25] MEDS ORDERED: KETOROLAC 15 MG INJ IV STA (22:28)
[2019-06-25] MEDS ORDERED: hydrALAzine 20 MG INJ IV ONE (23:30)
[2019-06-26] MEDS ORDERED: LORAZEPAM 1 MG TAB PO ONE (01:00)
[2019-06-26 02:09] VITALS: BP 173/83; PULSE 78; RESP 16
== END 2019-06-26 02:13 | disposition home or self-care (01) ==
LOC: E/R 21:11
DX: R07.89 Other chest pain (principal); I12.0 Hypertensive chronic kidney disease with stage 5 chronic kidney disease or end stage renal disease; N18.6 End stage renal disease; F17.210 Nicotine dependence, cigarettes, uncomplicated; Z21 Asymptomatic human immunodeficiency virus [HIV] infection status; Z99.2 Dependence on renal dialysis
CPT/HCPCS: 71045; 80053; 83690; 83880; 84484; 85025; 93005; 96374; 96375; 99285; J0360; J1885

== ENCOUNTER 2019-06-28 22:02 | Emergency (ER) | payer MEDICARE, OTHER ==
[~2019-06-28] VITALS: Ht 180.3 cm; Wt 70.5 kg
[~2019-06-28 22:02] MED LIST changes: -CALC200T26 PO
[2019-06-28 22:08] VITALS: Ht 180.3 cm; Wt 70.5 kg
[2019-06-28] MEDS: DILTIAZEM 25 MG INJ IV STA ×2 (22:25→22:48)
[2019-06-28] MEDS ORDERED: ACETAMINOPHEN 325 MG TAB PO PRN (23:30)
[2019-06-28] MEDS ORDERED: ONDANSETRON 4 MG INJ IV PRN (23:30)
[2019-06-28] MEDS ORDERED: IBUPROFEN 800 MG TAB PO ONE (23:30)
[2019-06-29 00:30] VITALS: BP 198/110; PULSE 55; RESP 17
== END 2019-06-29 02:52 | disposition home or self-care (01) ==
LOC: E/R 22:02 → CANBEDREQ 06-29 10:33
DX: I49.01 Ventricular fibrillation (principal); I12.0 Hypertensive chronic kidney disease with stage 5 chronic kidney disease or end stage renal disease; N18.6 End stage renal disease; Z21 Asymptomatic human immunodeficiency virus [HIV] infection status; Z87.891 Personal history of nicotine dependence; Z99.2 Dependence on renal dialysis
CPT/HCPCS: 36415; 71045; 80053; 83880; 84484; 85025; 85610; 93005